=== PATIENT | female | born 1935 | race Caucasian/White ===

== ENCOUNTER 2017-03-30 15:46 | Inpatient (IN) | payer MEDICARE ==
[~2017-03-30 15:46] MED LIST: AMBIEN10 MG PO; DOLOPHINE HCL10 MG PO; GLUCOPHAGE500 MG PO; ISOSORBIDE DINI10 MG PO; LIPITOR40 MG PO; LYRICA100 MG PO; PLAVIX75 MG PO; RANEXA500 MG PO; SYNTHROID100 MCG PO; TRICOR145 MG PO; ZESTRIL40 MG PO
[2017-03-30 17:50] LABS: BASOPHILS 0.1 % (0-2); EOSINOPHILS 0 % (0-7); HEMATOCRIT 37.1 % (36.0-48.0); IMMATURE GRANULOCYTES 0.3 % (0-5); LYMPHOCYTES 4.8 % (15-50); MCH 27.2 pg (26.0-34.0); MCHC 32.3 g/dL (31.0-37.0); MCV 84.1 fL (80.0-100.0); MEAN PLATELET VOLUME 10.3 fL (7.4-10.4); NEUTROPHILS 92.8 % (40-80); PLATELET COUNT 244 10x3/uL (130-400); RBC 4.41 10x6/uL (4.00-5.40); RDW 15.1 % (11.5-14.5)
[2017-03-30 17:52] LABS: WBC 11.8 10x3/uL (4.8-10.8)
[2017-03-30 18:00] LABS: APTT 20.7 SECONDS (22.8-39.4); INR 0.89 (0.85-1.17); PROTIME 11.9 SECONDS (11.6-15.0)
[2017-03-30 18:13] LABS: ANION GAP 11.1 mmol/L (8-16); BILIRUBIN - TOTAL 0.37 mg/dL (0.2-1.3); CARBON DIOXIDE 35.9 mmol/L (21.0-32.0); CREATININE - SERUM 0.9 mg/dL (0.6-1.3); MAGNESIUM - SERUM 1.6 mg/dL (1.8-2.4); PROTEIN - SERUM 7.6 g/dL (6.4-8.2); TROPONIN-I 0.017 ng/mL (0.000-0.060)
[2017-03-30 18:35] LABS: APPEARANCE SLT CLOUDY (CLEAR); COLOR YELLOW (YELLOW); NITRITE NEGATIVE (NEGATIVE); PROTEIN TRACE mg/dL (NEGATIVE)
[2017-03-30 18:36] LABS: BACTERIA MODERATE /hpf (NONE SEEN); BILIRUBIN NEGATIVE (NEGATIVE); EPITHELIAL CELLS 0-5 /hpf (0-5); GLUCOSE NEGATIVE (NEGATIVE); KETONE MODERATE mg/dL (NEGATIVE); RED CELLS - URINE 0-5 /hpf (0-5); UROBILINOGEN NORMAL (NORMAL); WHITE CELLS - URINE OCC /hpf (0-5)
[2017-03-30 18:46] LABS: UDS - AMPHET NEGATIVE QUAL (NEGATIVE); UDS - BARB NEGATIVE QUAL (NEGATIVE); UDS - BENZO POSITIVE QUAL (NEGATIVE); UDS - COCAINE NEGATIVE QUAL (NEGATIVE); UDS - OPIATE POSITIVE QUAL (NEGATIVE); UDS - PCP NEGATIVE QUAL (NEGATIVE); UDS - THC NEGATIVE QUAL (NEGATIVE)
--- NOTE | 2017-03-30 23:21 | NUR ---
PATIENT IA ALERT, ARRIVED FROM THE ER VIA STRETCHER, SON IS AT BEDSIDE. IV PATENT IN RIGHT JOSEPH AREA. CALL LIGHT IN REACH.
[2017-03-31] VITALS: BP 150/73
--- NOTE | 2017-03-31 00:47 | NUR ---
22 GAUGE IN RIGHT WRIST STARTED BY RUTH OVALLE. NEW ORDER FOR DILAUDID GIVEN VIA PHONE BY DR LOUIS IN THE ER. CALL LIGHT IN REACH, DENIES ANY NEEDS AT THIS TIME.
[2017-03-31 04:00] VITALS: BP 175/81
--- NOTE | 2017-03-31 07:15 | NUR ---
RECEIVED REPORT. ASSUMED CARE OF PATIENT. K+ 20MEQ RIDER STOPPED AT THIS TIME. PER ELECTROLYTE PROTOCOL, 10 MEQ K+ RIDER STARTED BY NOC NURSE. IV TO RIGHT ARM FOUND INFILTRATED. IV FLUIDS BALANCED AND INFUSING TO RIGHT LOWER LEG. WARM COMPRESS PLACED TO RIGHT ARM WHERE IV INFILTRATED. PATIENT NOW TOLERATING IV FLUIDS AND K+ RIDER WELL. FAMILY AT BEDSIDE. NO DISTRESS.
[2017-03-31 08:21] VITALS: BP 185/86
--- NOTE | 2017-03-31 11:30 | NUR ---
K+ RIDER #3 STARTED AT THIS TIME. RESTING WELL IN BED WITH EYES CLOSED. EASILY AROUSED. NO VOMITING. NO DISTRESS. CALL LIGHT WITHIN REACH.
[2017-03-31 12:19] VITALS: BP 138/78
--- NOTE | 2017-03-31 13:40 | NUR ---
K+ RIDER #4 HUNG AT THIS TIME. PATIENT HAS BEEN TOLERATED K+ RIDER THUS FAR. TOLERATING PO CLEAR LIQUIDS WELL.
[2017-03-31 15:10] LABS: BASOPHILS 0.1 % (0-2); EOSINOPHILS 0.1 % (0-7); HEMATOCRIT 34.9 % (36.0-48.0); IMMATURE GRANULOCYTES 0.2 % (0-5); LYMPHOCYTES 9.3 % (15-50); MCH 27.2 pg (26.0-34.0); MCHC 31.5 g/dL (31.0-37.0); MCV 86.4 fL (80.0-100.0); MEAN PLATELET VOLUME 10.3 fL (7.4-10.4); MONOCYTES 6.9 % (2-11); NEUTROPHILS 83.4 % (40-80); PLATELET COUNT 221 10x3/uL (130-400); RBC 4.04 10x6/uL (4.00-5.40); RDW 15.4 % (11.5-14.5); WBC 13.3 10x3/uL (4.8-10.8)
[2017-03-31 15:58] LABS: CALCIUM 10.5 mg/dL (8.5-10.1); CARBON DIOXIDE 35.6 mmol/L (21.0-32.0); CREATININE - SERUM 0.9 mg/dL (0.6-1.3)
[2017-03-31 16:00] LABS: POTASSIUM - SERUM 2.6 mmol/L (3.5-5.1)
--- NOTE | 2017-03-31 16:00 | NUR ---
K+ RESULTED AT 2.6 AFTER 4 RIDERS. K+ RIDER #5 HUNG AT THIS TIME.
--- NOTE | 2017-03-31 17:10 | NUR ---
MEDICATED FOR PAIN AT THIS TIME. ALSO MEDICATED WITH ZOFRAN TO PREVENT NAUSEA FROM IV PAIN MEDICATION.
--- NOTE | 2017-03-31 17:44 | NUR ---
22 GAUGE IV PLACED TO LEFT FOREARM X 1 STICK. GOOD BLOOD RETURN, EASY FLUSH. TAPED, DATED AND SECURED. TOLERATED IV PLACEMENT WELL. IV PLACED DUE TO AVOID USE OF IV IN LEG. CONTINUES TO RECEIVE NS AND K+ RIDERS. NO DISTRESS.
--- NOTE | 2017-03-31 18:13 | NUR ---
K+ RIDER #6 HUNG AT THIS TIME. NO DISTRESS. TOLERATING K+ WELL.
--- NOTE | 2017-03-31 19:45 | NUR ---
RESTING IN BED. ALERT/[place]. JUST COMPLETED 6TH IV POTASSIUM RIDER. POTASSIUM LEVEL STILL LOW, WILL START ANOTHER ROUND OF RIDERS. O2 @ 2L/NC WITH NONLABORED RESPIRATIONS. IV SITED TO [facility] AND IVF INFUSING WITH POTASSIUM RIDERS Y SITED IN AT LOWEST PORT. SEE ASSESSMENT. CPOC.
[2017-03-31 20:00] VITALS: BP 168/104
[2017-04-01] VITALS: BP 182/86
--- NOTE | 2017-04-01 04:06 | NUR ---
PT HAS CONTINUED TO RECIEVE IV POTASSIUM RIDERS X 3 AND WILL HAVE AM LAB SHORTLY TO SEE HER CURRENT POTASSIUM LEVEL. IVF INFUSING. HAS BEEN UP TO BATHROOM WITH ASSIST X 3. CPOC.
[2017-04-01 05:55] VITALS: BP 181/89
[2017-04-01 06:05] LABS: BASOPHILS 0.2 % (0-2); EOSINOPHILS 0.5 % (0-7); HEMOGLOBIN 10.6 g/dL (12-16); IMMATURE GRANULOCYTES 0.2 % (0-5); LYMPHOCYTES 13.1 % (15-50); MCH 26.9 pg (26.0-34.0); MCHC 31.2 g/dL (31.0-37.0); MCV 86.3 fL (80.0-100.0); MEAN PLATELET VOLUME 10.5 fL (7.4-10.4); MONOCYTES 7.4 % (2-11); NEUTROPHILS 78.6 % (40-80); PLATELET COUNT 224 10x3/uL (130-400); RBC 3.94 10x6/uL (4.00-5.40); RDW 15.4 % (11.5-14.5); WBC 10.5 10x3/uL (4.8-10.8)
[2017-04-01 06:25] LABS: ALBUMIN 3.2 g/dL (3.4-5.0); ANION GAP 6.5 mmol/L (8-16); BILIRUBIN - TOTAL 0.36 mg/dL (0.2-1.3); CALCIUM 10.3 mg/dL (8.5-10.1); CREATININE - SERUM 0.8 mg/dL (0.6-1.3); POTASSIUM - SERUM 2.5 mmol/L (3.5-5.1); PROTEIN - SERUM 6.3 g/dL (6.4-8.2)
[2017-04-01 08:00] VITALS: BP 161/108
--- NOTE | 2017-04-01 08:20 | NUR ---
PT AOX4 RESP EVEN AND NONLABORED PT DENIES NEEDS AT THIS TIME SRX2 BED AT LOWEST SETTING CALL LIGHT WITHIN REACH WILL CONTINUE TO MONITOR
[2017-04-01 12:00] VITALS: BP 193/102
[2017-04-01] MEDS ORDERED: NEXIUM40 MG PO (15:11)
[2017-04-01] MEDS ORDERED: SINGULAIR10 MG PO (15:12)
[2017-04-01] MEDS ORDERED: SYNTHROID125 MCG PO (15:13)
[2017-04-01] MEDS ORDERED: VITAMIN D250000 UNIT PO (15:15)
[2017-04-01] MEDS ORDERED: ZYRTEC10 MG PO (15:17)
[2017-04-01] MEDS ORDERED: DESERYL100 MG PO (15:18)
[2017-04-01] MEDS ORDERED: REMERON15 MG PO (15:18)
[2017-04-01] MEDS ORDERED: CARAFATE1 G PO (15:19)
[2017-04-01] MEDS ORDERED: DALIRESP500 MCG PO (15:20)
[2017-04-01] MEDS ORDERED: COLACE100 MG PO (15:20)
[2017-04-01] MEDS ORDERED: CYCLOBENZAPRINE5 MG PO (15:21)
[2017-04-01] MEDS ORDERED: MILK OF MAGNESI30 ML PO (15:24)
[2017-04-01] MEDS ORDERED: PLAVIX75 MG PO (15:25)
[2017-04-01] MEDS ORDERED: NASONEX NASAL S17 GM NS (15:25)
[2017-04-01] MEDS ORDERED: XANAX0.25 MG PO (15:26)
[2017-04-01] MEDS ORDERED: COREG6.25 MG PO (15:27)
[2017-04-01] MEDS ORDERED: HYDRALAZINE HC100 MG PO (15:28)
[2017-04-01] MEDS ORDERED: NORVASC10 MG PO (15:29)
[2017-04-01] MEDS ORDERED: SYMBICORT 16010.2 GM INH (15:31)
[2017-04-01] MEDS ORDERED: PROAIR HFA8.5 GM INH (15:31)
[2017-04-01 16:00] VITALS: BP 207/107
--- NOTE | 2017-04-01 19:15 | NUR ---
1809- ANSWERED PT'S CALL CEE. PT WITH C/O BURNING IN IV LINE. 1ST RUN OF KCL IS RUNNING AT 100. IV SITE IS NOT RED OR EDEMATOUS. EXPLAINED THAT IV KCL IS VERY IRRITATING TO THE VEIN, BUT THE KCL IS VERY IMPORTANT FOR HER HEART. BACKED OFF RATE TO 75 TO SEE IF THAT WOULD HELP WITH HER DISCOMFORT. 1819- WENT BACK IN TO CHECK ON PT AND SHE REPORTS THAT HER IV IS NO LONGER BOTHERING HER. KCL INFUSING. 1829- ENVIRONMENTAL WEB CRAWLER REPORTED THAT PT WAS OFF MONITOR, WENT IN TO CHECK PT AND LEADS WERE OFF PATIENT, SO GOT NEW STICKERS AND REAPPLIED TELE. PT APPEARING LETHARGIC AND SOB WITH SHALLOW RESPIRATIONS. O2 SAT 99% ON 2LNC. LUNG SOUNDS SHOW VERY DECREASED AIR MOVEMENT THROUGHOUT. SAT PT UPRIGHT AND REPORTED WHEN I SAW PT AT 1809, PT WAS AWAKE, ALERT AND ORIENTED X3. NOW PT LETHARGIC AND CONFUSED, HAVING DIFFICULTY STAYING AWAKE. SHE WAS NOTED TO BE GASPING FOR AIR AT TIMES WITH RR 8-10 WITH PERIODS OF APNEA. O2 SAT REMAINED 98-99%. FINDINGS REPORTED TO CHARGE NURSE MIGUEL A. AWAITING ORDERS FROM . REPORT GIVEN TO NIGHT NURSE.
--- NOTE | 2017-04-01 19:30 | NUR ---
PT HAD EPISODE AT END OF DAY SHIFT. SHE IS NOW RESTING IN BED WITH SON AT BEDSIDE. ALERT/VOICING THAT SHE HAS PAIN AND DISCOMFORT. WILL MEDICATE FOR PAIN. PTS SON SITTING WITH HER AND TALKING TO HER ABOUT WHY SHE HAD THE EPISODE AT THE END OF DAY SHIFT. PT DOES NOT SEEM TO UNDERSTAND WHAT HE IS ASKING AND JUST KEEPS TELLING NURSE "I NEED PAIN MEDICINE".
[2017-04-01 20:00] VITALS: BP 159/82
--- NOTE | 2017-04-01 21:12 | NUR ---
PT'S SON AT BEDSIDE ON INITIAL ROUNDS (SON SERAFIN). PT IS ALERT/ORIENTED. VSS. NO DISTRESS. SHE IS SAYING THAT SHE IS IN PAIN AND HURTING BADLY. POTASSIUM LEVEL IS ONLY AT 3.1, SO PROTOCOL WILL CONTINUE. POTASSIUM RIDER # 2 STARTED AT THIS TIME TO IV IN RIGHT LOWER JOSEPH. IV IN LFA IS IRRITATED/INFLAMED AND NO LONGER USABLE. WILL REMOVE AND ATTEMPT RESITE. SON WAS CONCERNED THAT FAMILY THAT VISITED EARLIER TODAY MAY HAVE GIVEN HIS MOTHER SOME TYPE OF MEDICINE THAT LED TO HER EPISODE AT THE END OF THE DAY SHIFT. FOR NOW, PT IS DOING OK. WILL MONITOR AND CPOC.
[2017-04-02] VITALS: BP 147/62
--- NOTE | 2017-04-02 02:14 | NUR ---
LAST POTASSIUM RIDER INFUSING, THEN WILL DO RECHECK OF POTASSIUM LEVEL. PT WAS MEDICATED FOR THE 2ND TIME THIS SHIFT EARLIER AND IS NOW ASLEEP WITH NO SIGNS OF DISTRESS. CPOC.
[2017-04-02 04:00] VITALS: BP 154/82
[2017-04-02 05:13] LABS: BASOPHILS 0.2 % (0-2); EOSINOPHILS 1.5 % (0-7); HEMATOCRIT 31.6 % (36.0-48.0); HEMOGLOBIN 9.6 g/dL (12-16); IMMATURE GRANULOCYTES 0.2 % (0-5); LYMPHOCYTES 19.5 % (15-50); MCH 26.7 pg (26.0-34.0); MCHC 30.4 g/dL (31.0-37.0); MEAN PLATELET VOLUME 10.8 fL (7.4-10.4); MONOCYTES 7.8 % (2-11); NEUTROPHILS 70.8 % (40-80); PLATELET COUNT 225 10x3/uL (130-400); RBC 3.59 10x6/uL (4.00-5.40); RDW 15.5 % (11.5-14.5); WBC 8.6 10x3/uL (4.8-10.8)
[2017-04-02 05:34] LABS: ALBUMIN 2.9 g/dL (3.4-5.0); ANION GAP 6.5 mmol/L (8-16); BILIRUBIN - TOTAL 0.3 mg/dL (0.2-1.3); CALCIUM 10.3 mg/dL (8.5-10.1); CARBON DIOXIDE 34.7 mmol/L (21.0-32.0); CREATININE - SERUM 0.8 mg/dL (0.6-1.3); MAGNESIUM - SERUM 1.6 mg/dL (1.8-2.4); POTASSIUM - SERUM 3.2 mmol/L (3.5-5.1); PROTEIN - SERUM 5.7 g/dL (6.4-8.2)
[2017-04-02 06:26] VITALS: BMI 25.8
[2017-04-02 08:00] VITALS: BP 148/71
--- NOTE | 2017-04-02 09:00 | NUR ---
ALERT AND ORIENTED X4. INITIATE ELECTROLYTE PROTOCOL PER DR ORDER. CONTINUE PLAN OF CARE AND SAFETY PRECAUTIONS. SINUS RHTHYM 77bpm ON TELEMETRY. REFUSE SCDs.
[2017-04-02 12:00] VITALS: BP 112/55
--- NOTE | 2017-04-02 14:00 | NUR ---
ALERT AND ORIENTED X4. COMPLAINING OF DIARRHEA. NOTIFY DOCTOR. IMODIUM ORDERED PER DOTTIE CUNNINGHAM APN. CONTINUE PAIN MANAGEMENT ORDERED. SON AT BEDSIDE. IV RT JOSEPH INFUSING ORDERED. COMPLAINS OF FEELING SOB. RESPIRATORY MEDICATIONS RESTARTED. BED LOCKED AND LOW. CALL LIGHT IN REACH. TWO SIDERAIL UP. CONTINUE PLAN OF CARE.
[2017-04-02 14:07] LABS: % SATURATION 17 % (15-55); IRON 44 ug/dl (35-150); TOTAL IRON BIND CAPACITY 247 ug/dl (260-445); UNSAT IRON BIND CAPACITY 203 ug/dl (150-375)
[2017-04-02 14:26] LABS: HEMOGLOBIN A1C 5.6 % (4.8-6.0)
[2017-04-02 16:00] VITALS: BP 167/85
--- NOTE | 2017-04-02 16:24 | NUR ---
Patient Name: SABA HOWARD Admission Status: ER Accout number: [id number] Admission Date: 03-30-2017 : 1935 Admission Diagnosis: Attending: MINESH MARIE Current LOS: 3 Anticipated DC Date: 04-03-2017 Planned Disposition: [facility] Facility Primary Insurance: MEDICARE A & B PLANNED EXTERNAL PROVIDER: [facility], MEDICARE REHAB BED Discharge Planning Comments: * Is the patient Alert and Oriented? Yes 0 * How many steps to enter\exit or inside your home? 1 0 * PCP DR. JALEESA ZAVALA 0 * Pharmacy [facility] * Preadmission Environment [facility] Facility 0 * Facility Name [facility] 0 * ADLs Partial Dependent 0 * Partial ADLs (Assistance needed) Bathing Medication Management Transfers 0 * Equipment Nebulizer Oxygen Walker 0 * Other Equipment HOME AND PORTABLE OXYGEN [facility] - MEDICAL EQUIPMENT 0 * List name and contact numbers for known caregivers / representatives who currently or will assist patient after discharge: WILBUR HOWARD, SON, 0 * Community resources currently utilized None 0 * Please name any agencies selected above. NONE 0 * Additional services required to return to the preadmission environment? No 0 * Can the patient safely return to the preadmission environment? Yes 0 * Has this patient been hospitalized within the prior 30 days at any hospital? Yes 0 CM MET WITH PT AND SON IN ROOM TO DISCUSS DISCHARGE PLANNING AND NEEDS. PT REPORTS LIVING AT HOME INDEPENDENTLY; PT HAS AN ADULT DAUGHTER WHO DOES LIVE IN THE HOME CURRENTLY BUT DOES NOT ASSIST PT WITH CARE. PT'S SON REPORTS HIS SISTER IS ON DRUGS AND THEY ARE IN THE PROCESS OF EVICTING HER FROM PT'S HOME. PT HAS NEBULIZER, HOME / PORTABLE OXYGEN AND WALKER FROM [facility]. PT HAS NO OUTSIDE SERVICES ASSISTING IN THE HOME. CM DISCUSSED AVAILABILITY OF HOME HEALTH, REHAB SERVICES AND MEDICAL EQUIPMENT. PT WAS AT [facility] FOR REHAB. PT INITIALLY STATES SHE WANTS TO GO HOME. PT'S SON DISCUSSED NEED FOR REHAB HE IS GOING HOME OUT OF STATE FOR ABOUT 4 WEEKS AND NEEDS TIME TO GET BACK TO CARE FOR PT IN HER HOME. PT STATES SHE WILL GO TO [facility] FOR REHAB BUT THEY WILL HAVE TO WAIT FOR REHAB UNTIL SHE STOPS HAVING DIARREAH. PT DENIES DISCHARGE NEEDS, REPORTS HER SON WILL PICK HER UP FOR DISCHARGE HOME. IMPORTANT MESSAGE FROM MEDICARE PROVIDED AND EXPLAINED. CM CALLED [facility], , SPOKE TO YASMEEN WHO REPORTS SHE WILL CHECK WITH ADMINISTRATION OF REHAB TO ENSURE THEY WILL TAKE PT BACK FOR CONTINUED REHAB. CM FAXED REFERRAL FOR REHAB SCREENING TO [facility] AT [phone]. CM WAITING ADMISSION DETERMINATION FROM [facility]. Trucker Hand: David Ewing
--- NOTE | 2017-04-02 17:03 | NUR ---
Patient Name: SABA HOWARD Encounter No: [id number] : 1935 Primary Insurance: MEDICARE A & B Anticipated DC Date: 04-03-2017 Planned Disposition: [facility] Care Facility External Planned Provider: TO BE DETERMINED BY PT/SON DCP follow-up note: CM RECEIVED CALL FROM YASMEEN OF [facility], , WHO INFORMED CM THAT PT/FAMILY DID NOT PAY FOR A BED HOLD AND [facility] HAS NO REHAB BEDS AVAILABLE. CM MET WITH PT AND SON IN ROOM, ADVISED OF ABOVE INFORMATION, DISCUSSED DETENTION FACILITY OPTIONS AND PROVIDED CHOICE LISTING. PT'S SON IS AWARE OF PLANNED DISCHARGE FOR TOMORROW, REPORTS HE WILL VISIT SOME OF THE FACILITIES AND PROVIDE A ALTERNATIVE CHOICE SOON POSSIBLE. CM WAITING ON PT'S SON TO PROVIDE ALTERNATE SELECTION FOR DETENTION REHAB. David Ewing, CASE MANAGEMENT
[2017-04-02 20:51] VITALS: BP 116/55
--- NOTE | 2017-04-02 21:23 | NUR ---
ASSISTED TO BATHROOM TO VOID. ADMIN SCHED PO MEDS WITH APPLESAUCE AND SIPS OF WATER. NO OTHER NEEDS VOICED. REQUESTED LIGHTS OFF AND DOOR PARTIALLY CLOSED TO SLEEP. HAS CL IN REACH.
--- NOTE | 2017-04-03 00:30 | NUR ---
RESTING ON LEFT SIDE WITH EYES CLOSED. RR EVEN U/L. NO S/S OF DISCOMFORT. CL IN REACH.
[2017-04-03 01:15] VITALS: BP 148/57
[2017-04-03 03:45] VITALS: BP 148/89
--- NOTE | 2017-04-03 04:30 | NUR ---
RESOURCE DEVELOPMENT MANAGER PRESENT IN ROOM. PATIENT DENIES ANY NEEDS OR DISCOMFORTS.
[2017-04-03 05:52] LABS: BASOPHILS 0 % (0-2); HEMATOCRIT 28.7 % (36.0-48.0); IMMATURE GRANULOCYTES 0.1 % (0-5); MCH 27.4 pg (26.0-34.0); MCHC 31.4 g/dL (31.0-37.0); MCV 87.5 fL (80.0-100.0); MEAN PLATELET VOLUME 10.8 fL (7.4-10.4); MONOCYTES 7.8 % (2-11); NEUTROPHILS 73.1 % (40-80); PLATELET COUNT 203 10x3/uL (130-400); RBC 3.28 10x6/uL (4.00-5.40); RDW 15.5 % (11.5-14.5); WBC 6.8 10x3/uL (4.8-10.8)
[2017-04-03 07:03] LABS: ALBUMIN 2.6 g/dL (3.4-5.0); BILIRUBIN - TOTAL 0.29 mg/dL (0.2-1.3); CALCIUM 9.8 mg/dL (8.5-10.1); CARBON DIOXIDE 32.3 mmol/L (21.0-32.0); CREATININE - SERUM 0.8 mg/dL (0.6-1.3); PROTEIN - SERUM 5.3 g/dL (6.4-8.2)
[2017-04-03 07:04] LABS: ANION GAP 6.7 mmol/L (8-16)
--- NOTE | 2017-04-03 07:37 | NUR ---
ADMIN MAGNESIUM PO AND POTASSIUM PO PER ELECT PROTOCOL.
[2017-04-03 08:00] VITALS: BP 159/77
[2017-04-03 12:00] VITALS: BP 117/51
[2017-04-03 16:00] VITALS: BP 122/70
--- NOTE | 2017-04-03 17:28 | NUR ---
Patient Name: SABA HOWARD Encounter No: [id number] : 1935 Primary Insurance: MEDICARE A & B Anticipated DC Date: 04-03-2017 Planned Disposition: Residential Facility External Planned Provider: TO BE DETERMINED BY FAMILY DCP follow-up note: CM RECEIVED CALL FROM LEONCIO OF [facility] WHO WAS CHECKING ON PT PT IS ON HOLD WITH HOME HEALTH. LEONCIO INFORMED CM THAT PT'S SON TOLD HER THAT PT WILL NOT BE READY TO DISCHARGE "FOR A WHILE" AND THEY ARE LOOKING AT NURSING HOMES FOR REHAB TODAY. LEONCIO INFORMED CM THAT HOME HEALTH SERVICES CONTINUE TO BE ON HOLD AND CAN BE RESUMED IF AND WHEN PT GOES HOME. CM ATTEMPTED TO SEE PT IN ROOM, PT SLEEPING, NO FAMILY PRESENT. CM WAITING ON FAMILY SELECTION OF LONG-TERM FACILITY FOR REHAB SERVICES AND WILL SEND REFERRALS WITH FAMILY/PATIENT SELECTION. David Ewing, CASE MANAGEMENT
--- NOTE | 2017-04-03 19:15 | NUR ---
ALERT/AWAKE TALKING TO HER SON PRESENT IN ROOM. IV IN RT JOSEPH INTACT SL. 02 AT 2L/NC. RR EVEN U/L. ORIENTED TO CL FOR ANY NEEDS.
--- NOTE | 2017-04-03 20:40 | NUR ---
ALERT/AWAKE WATCHING TV. ADMIN SCHED MEDS WITH APPLESAUCE AND SIPS OF WATER. NO OTHER NEEDS VOICED.
[2017-04-03 21:26] VITALS: BP 142/76
--- NOTE | 2017-04-04 00:55 | NUR ---
ADMIN NORCO 5/325MG PO PER REQUEST FOR C/O NECK/HIP PAIN LEVEL 10 ON NUMBER SCALE, DESCRIBED ACHING/THROBBING. NO OTHER NEEDS VOICED.
--- NOTE | 2017-04-04 06:10 | NUR ---
ADMIN SCHED MEDS. DENIES ANY NEEDS.
[2017-04-04 06:14] LABS: BASOPHILS 0.3 % (0-2); EOSINOPHILS 2.1 % (0-7); HEMATOCRIT 27.2 % (36.0-48.0); HEMOGLOBIN 8.5 g/dL (12-16); IMMATURE GRANULOCYTES 0.3 % (0-5); LYMPHOCYTES 26.8 % (15-50); MCH 27.1 pg (26.0-34.0); MCHC 31.3 g/dL (31.0-37.0); MCV 86.6 fL (80.0-100.0); MEAN PLATELET VOLUME 10.7 fL (7.4-10.4); MONOCYTES 8.5 % (2-11); PLATELET COUNT 199 10x3/uL (130-400); RBC 3.14 10x6/uL (4.00-5.40); RDW 15.7 % (11.5-14.5); WBC 6.1 10x3/uL (4.8-10.8)
[2017-04-04 06:30] LABS: ALBUMIN 2.6 g/dL (3.4-5.0); ANION GAP 2.9 mmol/L (8-16); BILIRUBIN - TOTAL 0.3 mg/dL (0.2-1.3); CALCIUM 9.3 mg/dL (8.5-10.1); CARBON DIOXIDE 35.2 mmol/L (21.0-32.0); CREATININE - SERUM 0.8 mg/dL (0.6-1.3); MAGNESIUM - SERUM 1.5 mg/dL (1.8-2.4); POTASSIUM - SERUM 3.1 mmol/L (3.5-5.1); PROTEIN - SERUM 4.9 g/dL (6.4-8.2)
[2017-04-04 07:59] VITALS: BP 182/69
[2017-04-04 09:16] LABS: FOLATE (FOLIC ACID) - SERUM 11.7 ng/mL (>3.0)
--- NOTE | 2017-04-04 09:54 | NUR ---
GAVE PRN TX PER MD ORDER
[2017-04-04 10:19] LABS: FOLATE (FOLIC ACID) - SERUM 11.3 ng/mL (>3.0)
[2017-04-04 12:03] VITALS: BP 135/57
--- NOTE | 2017-04-04 12:33 | NUR ---
PT ASSESSED WITH SUBJECTIVE C/O OF DYPSNEA. BILATERAL CLEAR DIMINSHED BREATH SOUNDS NURSE NOTIFIED TO ASK MD FOR A SCHEDULED UPDRAFT RECOMMENDATION
--- NOTE | 2017-04-04 13:55 | NUR ---
LATE ENTRY 1235 CM VISITED WITH THE PATIENT AND HER SON, WILBUR HOWARD, AT THE BEDSIDE. CM INTRODUCED SELF COVERING FIREARMS SPECIALIST. CM ASK IF THEY HAD CHOSEN ANY FACILITIES FOR REFERRAL TO FACILITATE PATIENT'S DISCHARGE. THE SON STATED HE HAD SELECTED A NUMBER OF FACILITIES AND PLANNED TO VISIT THEM TODAY. HE SELECTED THE [facility], [facility] AND [facility]. CM OBTAINED THE SON' SIGNATURE FOR THE SKILLED FACILITY PATIENT CHOICE FORM. THE PATIENT LISTEN BUT DID NOT PARTICIPATE IN THE CONVERSATION. SHE WANTED MEDICATION FOR PAIN. CM DID LEAVE THE ROOM X2 TO ADVISE HER NURSE, LEOBARDO. THE SON REQUESTED THE NUMBER FOR MEDICARE. CM PROVIDED IMM FORM PER HIS REQUEST.
[2017-04-04 16:00] VITALS: BP 127/63
--- NOTE | 2017-04-04 16:30 | NUR ---
ALERT AND ORIENTED X4. SITTING ON SIDE OF BED. NEW PAIN MANAGEMENT PLAN INITIATED PER DOCTOR'S ORDER. REPORTS NO RELIEF. SON AT BEDSIDE. CONTINUE PLAN OF CARE. BED LOCKED AND LOW. CALL LIGHT IN REACH. TWO SIDERAILS UP.
--- NOTE | 2017-04-04 19:15 | NUR ---
ALERT/AWAKE C/O BACK AND HIP PAIN LEVEL 9 ON NUMBER SCALE. IV IN RT JOSEPH INTACT, SL. TELEMETRY SHOWS 60 SR. ORIENTED TO CL FOR ANY NEEDS.
--- NOTE | 2017-04-04 20:30 | NUR ---
REQUESTED HEATING PAD FOR BACK/HIP PAIN. MADE A HOT PACK AND PLACED ON HER LOWER BACK. STATED SHE FELT MUCH BETTER.
[2017-04-04 20:48] VITALS: BP 147/77
--- NOTE | 2017-04-04 21:00 | NUR ---
CALLED AND RECEIVED ORDER FROM DOTTIE CUNNINGHAM APN FOR KPAP. CALLED HOUSE LEOBARDO TEMPLE FOR KPAP.
[2017-04-05] VITALS: BP 128/69
--- NOTE | 2017-04-05 03:44 | NUR ---
ASSISTED TO BATHROOM TO VOID. ADMIN NORCO PO PER REQUEST FOR C/O BACK/HIP PAIN.
[2017-04-05 06:32] LABS: BASOPHILS 0.7 % (0-2); EOSINOPHILS 2.8 % (0-7); HEMATOCRIT 27.9 % (36.0-48.0); HEMOGLOBIN 8.8 g/dL (12-16); IMMATURE GRANULOCYTES 0.4 % (0-5); LYMPHOCYTES 25.3 % (15-50); MCH 27.3 pg (26.0-34.0); MCHC 31.5 g/dL (31.0-37.0); MCV 86.6 fL (80.0-100.0); MEAN PLATELET VOLUME 10.4 fL (7.4-10.4); MONOCYTES 11.4 % (2-11); NEUTROPHILS 59.4 % (40-80); PLATELET COUNT 203 10x3/uL (130-400); RBC 3.22 10x6/uL (4.00-5.40); RDW 15.8 % (11.5-14.5); WBC 4.6 10x3/uL (4.8-10.8)
[2017-04-05 06:37] LABS: ALBUMIN 2.7 g/dL (3.4-5.0); BILIRUBIN - TOTAL 0.29 mg/dL (0.2-1.3); CALCIUM 9.4 mg/dL (8.5-10.1); CARBON DIOXIDE 32.7 mmol/L (21.0-32.0); CREATININE - SERUM 0.8 mg/dL (0.6-1.3); MAGNESIUM - SERUM 1.7 mg/dL (1.8-2.4); PROTEIN - SERUM 5.2 g/dL (6.4-8.2)
[2017-04-05 06:40] LABS: POTASSIUM - SERUM 3.7 mmol/L (3.5-5.1)
--- NOTE | 2017-04-05 07:15 | NUR ---
RECIEVED REPORT ON PATIENT, PATIENT IS ALERT AND ORIENTED AT THIS TIME. NAD NOTED AT THIS TIME. PATIENT DENIES ANY NEEDS OR PAIN AT THIS TIME. BED IS LOW AND LOCKED, CALL LIGHT IN REACH. WILL CONT TO MONITOR PATIENT. CPOC. SR ON MONITOR RATE OF 68.
[2017-04-05 08:00] VITALS: BP 176/78
--- NOTE | 2017-04-05 08:30 | NUR ---
MORNING MEDICATIONS GIVEN, ASSESSMENT DONE. CPOC
--- NOTE | 2017-04-05 10:44 | NUR ---
RECIEVED REPORT ON PATIENT, PATIENT IS ALERT AND ORIENTED AT THIS TIME. NAD NOTED AT THIS TIME. PATIENT DENIES ANY NEEDS OR PAIN AT THIS TIME. BED IS LOW AND LOCKED, CALL LIGHT IN REACH. WILL CONT TO MONITOR PATIENT. CPOC. PATIENT SR ON MONITOR WITH A RATE OF 68.
--- NOTE | 2017-04-05 10:46 | NUR ---
PATIENT RESTING WITH EYES CLOSED, AROUSES TO VOICE, DENIES ANY NEEDS. CPOC
--- NOTE | 2017-04-05 11:36 | NUR ---
PATIENT RESTING, WAITING ON LUNCH DENIES ANY NEEDS AT THIS TIME. BED LOW AND LOCKED. CPOC
--- NOTE | 2017-04-05 12:55 | NUR ---
Nutrition Follow Up: Pt reported that her appetite is good. She refused Glucerna at this time. Pt is eating 17% meal avg on an ADA vegetarian diet. Wt gain since admit noted. +BM 04/04/17. +CDT. Labs reviewed. Meds noted including Flagyl, Remeron. Rec continue current diet. Rec consider an appetite stimulant. Rec consider a Zinc supplement. RD following.
--- NOTE | 2017-04-05 13:00 | NUR ---
PATIENT RESTING, NAD NOTED AT THIS TIME. WILL CONT TO MONITOR PATIENT. CPOC
[2017-04-05 13:02] VITALS: BP 175/84
[2017-04-05] MEDS ORDERED: METHADONE 10 MG10 MG PO (14:54)
--- NOTE | 2017-04-05 15:00 | NUR ---
PATIENT SON REQUESTED THAT I GET A CURRENT MED LIST FROM [facility], DUE TO US NOT HAVING THE CORRECT LIST, DR JACKSON CALLED AND SUPPOSE TO FAX LIST OVER. CPOC
--- NOTE | 2017-04-05 15:20 | NUR ---
PATIENT STATES SHE IS HAVING DIARRHEA, WHEN ASKED PATIENT TO KEEP STOOL SO I COULD SEE, PATIENT KEEPS FLUSHING, SHE DID KEEP THIS LAST TIME, BUT NOTHING WAS THERE SHE STATED SHE HAD DIARRHEA BUT NOTHING WAS IN THE TOILET. WILL GET SAMPLE. CPOC
[2017-04-05 16:23] VITALS: BP 162/68
--- NOTE | 2017-04-05 17:35 | NUR ---
PATIENT SITTING UP IN BED EATING DINNER, FAMILY AT BEDSIDE. PATIENT REQUESTING BENADRYL FOR RUNNY NOSE. DOTTIE PRADO BENADRYL 25MG PO Q6H PRN. WILL GIVE. CPOC
--- NOTE | 2017-04-05 18:37 | NUR ---
PATIENT RESTING, NAD NOTED. BED LOW AND LOCKED. CPOC
--- NOTE | 2017-04-05 19:16 | NUR ---
PT IN BED RESTING. EVEN AND LABORED RESPIRATIONS NOTED. WILL CONTINUE TO MONITOR.
[2017-04-05 20:00] VITALS: BP 118/45
[2017-04-06] VITALS: BP 130/55
[2017-04-06 04:00] VITALS: BP 174/78
[2017-04-06 05:19] LABS: BASOPHILS 0.4 % (0-2); EOSINOPHILS 2.8 % (0-7); HEMATOCRIT 28.8 % (36.0-48.0); IMMATURE GRANULOCYTES 0.4 % (0-5); LYMPHOCYTES 19.7 % (15-50); MCHC 31.3 g/dL (31.0-37.0); MCV 86.5 fL (80.0-100.0); MEAN PLATELET VOLUME 10.4 fL (7.4-10.4); MONOCYTES 10.1 % (2-11); NEUTROPHILS 66.6 % (40-80); PLATELET COUNT 224 10x3/uL (130-400); RBC 3.33 10x6/uL (4.00-5.40); RDW 15.9 % (11.5-14.5); WBC 5.3 10x3/uL (4.8-10.8)
[2017-04-06 05:37] LABS: ANION GAP 6.5 mmol/L (8-16); CALCIUM 9.9 mg/dL (8.5-10.1); CARBON DIOXIDE 32.9 mmol/L (21.0-32.0); CREATININE - SERUM 0.9 mg/dL (0.6-1.3); MAGNESIUM - SERUM 1.6 mg/dL (1.8-2.4); POTASSIUM - SERUM 3.4 mmol/L (3.5-5.1)
--- NOTE | 2017-04-06 07:30 | NUR ---
REPORT RECIEVED. RR EVEN AND UNLABORED. PT REQUESTING PAIN MEDICAITON. WILL GIVE AND CTM.
[2017-04-06 08:22] VITALS: BP 144/84
--- NOTE | 2017-04-06 11:33 | NUR ---
CM placed call to sonAbel to inquire on status of assisted selection for discharge planning. Voice message left requesting return call. CM will continue to follow and assist PRN with discharge planning / needs.
[2017-04-06 11:48] VITALS: BP 160/76
--- NOTE | 2017-04-06 12:30 | NUR ---
PTS FAMILY APPROACHED NURSES STATION REGARDING PTS PAIN MEDICATION. EXPLAINED TO FAMILY MEMEMBERS THAT I SPOKE TO DOTTIE DAVID MUNOZ ABOUT PT REQUEST FOR MORE PAIN MEDS. DOTTIE REPORTED THAT SHE WAS NOT GOING TO INCREASE PAIN MEDICATIONS NOW. SHE WILL ASSESS PT LATER TODAY. RELAYED THIS INFORMATION TO FAMILY. VERBALIZED UNDERSTANDING.
--- NOTE | 2017-04-06 14:12 | NUR ---
SPOKE WITH PATIENTS SON WILBUR ABOUT THE FACT THAT THE DOCTORS WERE WANTING TO DISCHARGE HIS MOTHER TODAY, AND PER THE NOTES IN THE COMPUTER HE HAS BE SAYING THAT HE IS TOURING FACILITIES ALL WEEK, BUT THERE ARE NOT NOTES OF A DECISION MADE. QUESTIONED IF HE CHOSE A FACILITY YET. HE STATED THAT HE IS TOURING FACILITIES NOW. THEN HE STATED THAT WE COULD NOT DISCHARGE HER BECAUSE SHE WAS HAVING UNCONTROLLED DIARRHEA AND HER PAIN IS NOT CONTROLLED. EXPLAINED THAT PER HER NURSE AND AIDES, SHE IS NOT HAVING DIARRHEA. ALSO EXPLAINED THAT THE PAIN WAS NOT CONTROLLED WHEN SHE CAME IN HERE AND IT IS A CHRONIC CONDITION AND COULD BE TREATED BY HER DOCTOR OUTSIDE OF HERE. THAT THAT WAS NO REASON TO KEEP HER IN HERE. HE STATED THAT THE OTHER UNIT ASSEMBLER GAVE HIM A NUMBER TO CALL TO STOP A DISCHARGE. I EXPLAINED THAT YES, HE HAS THAT RIGHT, BUT IF HE DID NOT DO THE DISCHARGE APPEAL AND STILL REFUSED THE DISCHARGE, THERE WAS A CHANCE THAT HE COULD BE BILLED FOR THE TIME SHE REMAINED HERE AFTER THE DOCTOR FELT SHE COULD BE DISCHARGED. ALSO EXPLAINED IF HE DID THE APPEAL, HE COULD BE RESPONSIBLE FOR ANY DEDUCTIBLES OR COPAYS FROM THE INSURANCE COMPANY. I POINTED OUT THAT THAT WAS CLEARLY OUTLINED IN THE PAPERS GIVEN TO HIM. HE THEN STATED THAT HE WOULD MAKE A DECISION AND I COULD GO AHEAD AND SEND PAPERWORK OUT TO ALL THE FACILITIES AND THEN WHEN THEY MADE THEIR DECISION ONE OF THEM MAY ACCEPT HER. I EXPLAINED THAT I CAN NOT JUST BLINDLY SENT INFORMATION OUT TO FACILITIES THAT I WOULD NEED A SIGNATURE ON A PATIENT CHOICE PAPER AND IN ALL HONESTY, HIS MOTHERS CHOICE IS TO GO HOME AND NOT TO A FACILITY. AND TECHNICALLY SHE IS IN HER RIGHT MIND AND CAN MAKE HER OWN DECISIONS. AND THEREFORE SHE WOULD NOT SIGN THE FORM, BUT IF HE WAS HERE AND SHE GAVE PERMISSION FOR THIS AND WE OBTAINED A SIGNATURE AT THAT TIME, WE WOULD FAX THE INFORMATION OUT. AGAIN EXPLAINED THAT WE COULD NOT JUST HOLD HER HERE AND IF IT CAME DOWN TO IT, THE DOCTOR COULD DISCHARGE HER TO THE PLACE OF HER CHOICE, WHICH WOULD BE HER HOUSE. HE STATED THAT HE WOULD BE HERE IN 1-3 HOURS AND ASKED ME IF I WOULD STILL BE HERE AT THAT TIME. I EXPLAINED THAT IF I HAD LEFT, THERE WOULD BE ANOTHER UNIT ASSEMBLER HERE THAT COULD TALK TO HIM. THAT I WOULD LEAVE A MESSAGE THAT HE WAS COMING AND EXPLAIN WHAT WAS NEEDED. HE STATED THEY WOULD MAKE A DECISION TODAY.
--- NOTE | 2017-04-06 15:00 | NUR ---
PT REQUESTED THAT I GIVE HER TWO HYDROCODONES. I TOLD HER THAT I COULD NOT GIVE HER THE TWO BECAUSE ONLY ONE IS ORDERED. SHE SAID "WELL NO ONE WOULD KNOW EXCEPT ME." I EXPLAINED TO HER THAT I CANNOT GIVE HER THE SECOND PAIN MED. PT VERY AGITATED.
--- NOTE | 2017-04-06 15:17 | NUR ---
Patient Name: SABA HOWARD Encounter No: [id number] : 1935 Primary Insurance: MEDICARE A & B Anticipated DC Date: 04-06-2017 Planned Disposition: Long-Term Facility External Planned Provider: Medhat Campos DC follow-up note: CM meet with patient and son, Abel Howard to discuss discharge planning / needs. Patient and family are in agreement to try [facility]. Patient signed Patient choice form. CM call [facility]. Spoke with Savanna regarding referral. Faxed requested documentation. Awaiting determination. Case management will continue to follow and assist as needed with discharge planning / needs. Miranda Galeana
[2017-04-06 16:04] VITALS: BP 160/76
--- NOTE | 2017-04-06 16:47 | NUR ---
CM received call from [facility]. Patient has been accepted to SNF. Will send van to pick her up around 6:00. CM called son, Abel, informed him that patient would discharge tonight around 6:00 to [facility]. Abel verbalized understanding and satisfaction with DC plan. CM met with patient and informed her of above. Patient voiced understanding and satisfaction with DC plan status. CM will continue to follow and assist PRN with discharge planning / needs.
[2017-04-06] MEDS ORDERED: FLAGYL500 MG PO (16:58)
[2017-04-06] MEDS ORDERED: DURAGESIC1 PATCH .4 TRANSDERM (17:01)
[2017-04-06] MEDS ORDERED: HYDROCODON-ACE1 EAC7 PO (17:02)
[2017-04-06] MEDS ORDERED: FLORAJEN3 CAPS460 MG PO (17:03)
--- NOTE | 2017-04-06 17:45 | NUR ---
PT DISCHARGED. IV CATHETER REMOVED ON RIGHT JOSEPH WITH CATHETER TIP INTACT. DRESSING APPLIED. DRAFTER AUTOMOTIVE DESIGN LAYOUT REMOVED AND RETURNED TO CAMPUS ADMINISTRATIVE ASSISTANT. CALLED REPORT TO WEN OVALLE AT [facility]. D/C INSTRUCTIONS PROVIDED AND SIGNED. WRITTEN PRESCRIPTIONS PLACED IN D/C FOLDER. WILL GIVE TO AR STAFF WHEN THEY ARRIVE. PT WILL BE LEAVING VIA WHEELCHAIR AND BE TRANSPORTED BY [facility] TO [facility]. WILL CTM UNTIL TRANSPORT ARRIVES.
--- NOTE | 2017-04-06 18:05 | NUR ---
[facility] TRANPSORT HERE TO COMMODITY A[facility]LYST PT. PT LEFT VIA WHEELCHAIR.
== END 2017-04-06 18:14 | DRG 373 ==
LOC: D.ER 15:46 → D.MS 20:20 → D.M2 20:20
PROVIDERS: Emergency Medicine; Family Medicine; ADMIT Family Medicine
DX: A04.7 Enterocolitis due to Clostridium difficile (principal); E87.6 Hypokalemia; E86.0 Dehydration; E11.42 Type 2 diabetes mellitus with diabetic polyneuropathy; I10 Essential (primary) hypertension; I25.10 Atherosclerotic heart disease of native coronary artery without angina pectoris; J44.9 Chronic obstructive pulmonary disease, unspecified; M54.9 Dorsalgia, unspecified; G89.29 Other chronic pain; E03.9 Hypothyroidism, unspecified; D64.9 Anemia, unspecified; E78.5 Hyperlipidemia, unspecified

== ENCOUNTER 2018-09-27 09:56 | Emergency (ER) | payer MEDICARE ==
[~2018-09-27] VITALS: Ht 154.9 cm; Wt 59.1 kg
[~2018-09-27 09:56] MED LIST changes: +CARAFATE1 G PO; +COLACE100 MG PO; +COREG6.25 MG PO; +CYCLOBENZAPRINE5 MG PO; +DALIRESP500 MCG PO; +DESERYL100 MG PO; +DURAGESIC1 PATCH .4 TRANSDERM; +FLAGYL500 MG PO; +FLORAJEN3 CAPS460 MG PO; +HYDRALAZINE HC100 MG PO; +HYDROCODON-ACE1 EAC7 PO; +METHADONE 10 MG10 MG PO; +MILK OF MAGNESI30 ML PO; +NASONEX NASAL S17 GM NS; +NEXIUM40 MG PO; +NORVASC10 MG PO; +PROAIR HFA8.5 GM INH; +REMERON15 MG PO; +SINGULAIR10 MG PO; +SYMBICORT 16010.2 GM INH; +SYNTHROID125 MCG PO; +VITAMIN D250000 UNIT PO; +XANAX0.25 MG PO; +ZYRTEC10 MG PO
[2018-09-27 09:58] VITALS: Ht 154.9 cm; Wt 59.1 kg
[2018-09-27 11:17] LABS: APPEARANCE CLEAR (CLEAR); BILIRUBIN NEGATIVE (NEGATIVE); COLOR STRAW (YELLOW); GLUCOSE NEGATIVE (NEGATIVE); KETONE NEGATIVE (NEGATIVE); NITRITE NEGATIVE (NEGATIVE); PROTEIN NEGATIVE (NEGATIVE); SPECIFIC GRAVITY 1.015 (1.005-1.020); UROBILINOGEN NORMAL (NORMAL)
[2018-09-27 11:18] LABS: BASOPHILS 0.2 % (0-2); HEMOGLOBIN 10.1 g/dL (12-16); IMMATURE GRANULOCYTES 0.3 % (0-5); LYMPHOCYTES 29.5 % (15-50); MCH 28.2 pg (26.0-34.0); MCHC 31.6 g/dL (31.0-37.0); MCV 89.4 fL (80.0-100.0); MEAN PLATELET VOLUME 10.2 fL (7.4-10.4); MONOCYTES 8.7 % (2-11); NEUTROPHILS 59.3 % (40-80); PLATELET COUNT 181 10x3/uL (130-400); RBC 3.58 10x6/uL (4.00-5.40)
[2018-09-27 11:26] LABS: INR 1.02 (0.85-1.17); PROTIME 12.9 SECONDS (11.6-15.0)
[2018-09-27 11:32] LABS: ALKALINE PHOSPHATASE 79 U/L (46-116); ALT (SGPT) 9 U/L (10-68); BILIRUBIN - TOTAL 0.17 mg/dL (0.2-1.3); CALC OSMOLALITY 279 mosm/kg (275-300); CALCIUM 9.2 mg/dL (8.5-10.1); CARBON DIOXIDE 32.6 mmol/L (21.0-32.0); CHLORIDE - SERUM 102 mmol/L (98-107); CREATININE - SERUM 0.7 mg/dL (0.6-1.3); GLUCOSE 93 mg/dL (74-106); POTASSIUM - SERUM 4.4 mmol/L (3.5-5.1); PROTEIN - SERUM 6.2 g/dL (6.4-8.2); SODIUM 139 mmol/L (136-145); UREA NITROGEN 18 mg/dL (7-18); eGFR NON AFRICAN AMERICAN 85 mL/min (90-120)
[2018-09-27 11:47] LABS: CKMB 0.6 U/L (0.0-3.6); CREATINE KINASE 29 UL (21-215); PRO BNP 339 pg/mL (0-450); THYROID STIMULATING HORMONE 0.29 uIU/mL (0.36-3.74); TROPONIN-I < 0.017 ng/mL (0.000-0.060)
[2018-09-27] MEDS ORDERED: CATAPRES0.1 MG PO (15:07)
[2018-09-27 15:47] VITALS: BP 147/70
== END 2018-09-27 15:48 | disposition home or self-care (01) ==
LOC: D.ER 09:56
PROVIDERS: Emergency Medicine
DX: I10 Essential (primary) hypertension (principal)

== ENCOUNTER 2018-11-07 10:42 | Emergency (ER) | payer MEDICARE ==
[~2018-11-07 10:42] MED LIST changes: +CATAPRES0.1 MG PO
[2018-11-07 10:44] VITALS: BMI 24.6
[2018-11-07] MEDS ORDERED: ELIQUIS5 MG PO (10:54)
[2018-11-07] MEDS ORDERED: NORVASC5 MG PO (11:25)
[2018-11-07 12:07] VITALS: BP 189/89
== END 2018-11-07 12:43 | disposition home or self-care (01) ==
LOC: D.ER 10:42
DX: I10 Essential (primary) hypertension (principal); R51 Headache